=== PATIENT | male | born 1965 | race Caucasian/White ===

== ENCOUNTER 2017-09-20 09:53 | Emergency (ER) | payer MEDICAID ==
[2017-09-20 10:00] VITALS: RESP 16
[2017-09-20] MEDS ORDERED: SODIUM CHLORIDE 0.9% 1,000 ML IV ONE (10:30)
[2017-09-20] MEDS ORDERED: RX INFO: IV CONTRAST WAS GIVEN 1 EACH MISC MISCELLANE PRN (10:30)
[2017-09-20] MEDS ORDERED: ONDANSETRON 4 MG/2 ML VIAL IVP STA (10:31)
[2017-09-20 11:07] LABS: Basophils # (A) 0.1 k/uL (0-0.2); Basophils % (A) 1 %; CH 30.4; CHCM 35.4; Eosinophils # (A) 0.2 k/uL (0-0.7); Eosinophils % (A) 2 %; HCT 50.6 % (39.0-53.0); HDW 2.49; HGB 17.3 gm/dL (13.0-17.5); Luc # (Auto) 0.15; Luc % (Auto) 1; Lymphocytes # (A) 2.1 k/uL (1.0-4.8); Lymphocytes % (A) 20 %; MCH 29.4 pg (25.0-35.0); MCHC 34.2 g/dL (31.0-37.0); MCV 85.9 fL (80.0-100.0); Mean Platelet Volume 6.6; Monocytes # (A) 0.5 k/uL (0-1.0); Monocytes % (A) 5 %; Neutrophils # (A) 7.7 k/uL (1.3-7.7); Neutrophils % (A) 72 %; RBC 5.88 m/uL (4.30-5.90); RDW 12.5 % (11.5-15.5); WBC 10.7 k/uL (3.8-10.6); WBC (Perox) 9.62
--- NOTE | 2017-09-20 11:08 | ED ---
Abdominal Pain HPI - General Chief Complaint: Abdominal Pain Stated Complaint: NAUSEA X 3 DAYS URQ PAIN Time Seen by Provider: 09/20/17 10:08 Source: patient, family Mode of arrival: ambulatory Limitations: no limitations - History of Present Illness Initial Comments: 51-year-old male with past medical history of chronic right upper quadrant abdominal pain with multiple previous workups including abdominal ultrasound, HIDA scan 2, and EGD/colonoscopy with Dr. Patel presenting for evaluation of continued right upper quadrant abdominal pain. He states that it' s been on and off recently but has currently been present for the last 3 days. States is worse with eating and there is associated nausea with loose stools but denies vomiting anything up, chest pain, shortness of breath, fevers, chills. There are no alleviating factors. - Related Data Home Medications Medication Instructions Recorded Confirmed Ibuprofen [Motrin] 200 mg PO Q4-6H PRN 03/06/16 09/20/17 Lisinopril [Zestril] 10 mg PO QAM 03/06/16 09/20/17 Omeprazole [PriLOSEC] 20 mg PO QAM 03/06/16 09/20/17 Loratadine [Claritin] 10 mg PO DAILY 09/20/17 09/20/17 Oxymetazoline 0.05% Nasl [place] 2 spray EA NOSTRIL BID PRN 09/20/17 09/20/17 [Afrin 0.05% Nasal [place]] Sodium Chloride [[facility]] 1 spray EA NOSTRIL DAILY PRN 09/20/17 09/20/17 Allergies Allergy/AdvReac Type Severity Reaction Status Date / Time No Known Allergies Allergy Verified 09/20/17 10:20 Review of Systems ROS Statement: Those systems with pertinent positive or pertinent negative responses have been documented in the HPI. ROS Other: All systems not noted in ROS Statement are negative. Constitutional: Denies: fever, chills Eyes: Denies: eye pain, eye discharge ENT: Denies: ear pain, throat pain Respiratory: Denies: cough, dyspnea Cardiovascular: Denies: chest pain, palpitations Endocrine: Denies: fatigue, polydipsia, polyuria Gastrointestinal: Reports: abdominal pain, nausea, diarrhea. Denies: vomiting, constipation Genitourinary: Denies: urgency, dysuria Musculoskeletal: Denies: back pain, arthralgia, myalgia Skin: Denies: rash, lesions Neurological: Denies: headache, weakness Psychiatric: Denies: anxiety, depression Hematological/Lymphatic: Denies: easy bleeding, easy bruising Past Medical History Past Medical History: GERD/Reflux, Hypertension, Osteoarthritis (OA) History of Any Multi-Drug Resistant Organisms: None Reported Past Surgical History: Appendectomy, Orthopedic Surgery Additional Past Surgical History / Comment(s): bilateral hip replaced Past Anesthesia/Blood Transfusion Reactions: No Reported Reaction Past Psychological History: No Psychological Hx Reported Smoking Status: Current every day smoker Past Alcohol Use History: Rare Past Drug Use History: None Reported - Past Family History Father Family Medical History: Cancer Additional Family Medical History / Comment(s): PROSTATE General Exam Limitations: no limitations General appearance: alert, in no apparent distress Head exam: Present: atraumatic, normocephalic Eye exam: Present: normal appearance, PERRL, EOMI. Absent: scleral icterus, conjunctival injection, periorbital swelling ENT exam: Present: normal exam, mucous membranes moist Neck exam: Present: normal inspection. Absent: tenderness, meningismus, lymphadenopathy Respiratory exam: Present: normal lung sounds bilaterally. Absent: respiratory distress, wheezes, rales, rhonchi, stridor Cardiovascular Exam: Present: regular rate, normal rhythm, normal heart sounds. Absent: systolic murmur, diastolic murmur, rubs, gallop, clicks GI/Abdominal exam: Present: soft, tenderness. Absent: distended, guarding, rebound, rigid, normal bowel sounds, diminished bowel sounds Rectal exam: Present: deferred Extremities exam: Present: normal inspection, full ROM, normal capillary refill. Absent: tenderness, pedal edema, joint swelling, calf tenderness Back exam: Present: normal inspection Neurological exam: Present: alert, oriented X3, CN II-XII intact Psychiatric exam: Present: normal affect, normal mood Skin exam: Present: warm, dry, intact, normal color. Absent: rash Course Vital Signs 09/20/17 09/20/17 09:56 12:35 Temperature 98.6 F 98.7 F Pulse Rate 64 55 L Respiratory 16 16 Rate Blood Pressure 180/99 130/82 O2 Sat by Pulse 99 97 Oximetry Medical Decision Making - Medical Decision Making 51-year-old male with past medical history of multiple workups for right upper quadrant abdominal pain including abdominal ultrasound and HIDA scans 2 presented for evaluation of right upper quadrant pain present for the last 3 days worse with food. On physical examination he has tenderness to the abdomen or peritoneal signs of guarding, rigidity, or rebound. Remainder of his physical exam is benign. Given his previous exams have not included any further imaging will obtain a CT abdomen and pelvis at this time. We'll also obtain labs. Patient was offered pain and nausea control however refused. He was informed that should he change his mind he should inform RN or DO. Labs revealed a mild transaminitis however reviewing the patient's past medical history is a consistent with his baseline. CT abdomen and pelvis showed no acute process however there were some abnormalities noted and recommended follow -up in 6-12 months. The patient was informed of all results and through shared decision making it was determined that he would be discharged with instructions to follow-up with his primary care physician and a GI specialist. Further advised to return to this facility if his symptoms should worsen or persist. The patient acknowledged an understanding of all formation provided and agreed with this plan of care. - Lab Data Result diagrams: 09/20/17 10:50 09/20/17 10:50 Lab Results 09/20/17 09/20/17 09/20/17 Range/Units 10:50 10:50 11:30 WBC 10.7 H (3.8-10.6) k/uL RBC 5.88 (4.30-5.90) m/uL Hgb 17.3 (13.0-17.5) gm/dL Hct 50.6 (39.0-53.0) % MCV 85.9 (80.0-100.0) fL MCH 29.4 (25.0-35.0) pg MCHC 34.2 (31.0-37.0) g/dL RDW 12.5 (11.5-15.5) % Plt Count 162 (150-450) k/uL Neutrophils % 72 % Lymphocytes % 20 % Monocytes % 5 % Eosinophils % 2 % Basophils % 1 % Neutrophils # 7.7 (1.3-7.7) k/uL Lymphocytes # 2.1 (1.0-4.8) k/uL Monocytes # 0.5 (0-1.0) k/uL Eosinophils # 0.2 (0-0.7) k/uL Basophils # 0.1 (0-0.2) k/uL Sodium 142 (137-145) mmol/L Potassium 4.6 (3.5-5.1) mmol/L Chloride 109 H (98-107) mmol/L Carbon Dioxide 23 (22-30) mmol/L Anion Gap 10 mmol/L BUN 19 (9-20) mg/dL Creatinine 0.92 (0.66-1.25) mg/dL Est GFR (MDRD) Af Amer >60 (>60 ml/min/1.73 sqM) Est GFR (MDRD) Non-Af >60 (>60 ml/min/1.73 sqM) Glucose 106 H (74-99) mg/dL Calcium 10.1 (8.4-10.2) mg/dL Total Bilirubin 0.9 (0.2-1.3) mg/dL AST 80 H (17-59) U/L ALT 148 H (21-72) U/L Alkaline Phosphatase 54 (38-126) U/L Total Protein 7.9 (6.3-8.2) g/dL Albumin 4.5 (3.5-5.0) g/dL Lipase 231 (23-300) U/L Urine Color Yellow Urine Appearance Clear (Clear) Urine pH 6.0 (5.0-8.0) Ur Specific [place] 1.032 (1.001-1.035) Urine Protein Negative (Negative) Urine Glucose (UA) Negative (Negative) Urine Ketones Negative (Negative) Urine Blood Negative (Negative) Urine Nitrite Negative (Negative) Urine Bilirubin Negative (Negative) Urine Urobilinogen <2.0 (<2.0) mg/dL Ur Leukocyte Esterase Negative (Negative) Disposition Clinical Impression: Abdominal pain Disposition: HOME SELF-CARE Condition: Stable Instructions: Abdominal Pain (ED) Referrals: Felix Powell Jr, [Primary Care Provider] - 1-2 days Time of Disposition: 12:33
[2017-09-20 11:18] LABS: ALT 148 U/L (21-72); AST 80 U/L (17-59); Alkaline Phosphatase 54 U/L (38-126); Anion Gap 10 mmol/L; Blood Urea Nitrogen 19 mg/dL (9-20); Calcium 10.1 mg/dL (8.4-10.2); Carbon Dioxide 23 mmol/L (22-30); Chloride 109 mmol/L (98-107); Glucose 106 mg/dL (74-99); Non-African American GFR(MDRD) >60 (>60 ml/min/1.73 sqM); Potassium 4.6 mmol/L (3.5-5.1); Sodium 142 mmol/L (137-145); Total Bilirubin 0.9 mg/dL (0.2-1.3); Total Protein 7.9 g/dL (6.3-8.2)
--- NOTE | 2017-09-20 11:44 | CT ---
EXAMINATION TYPE: CT abdomen pelvis w con DATE OF EXAM: 09/20/2017 COMPARISON: NONE HISTORY: 51-year-old male RUQ pain TECHNIQUE: Contiguous axial scanning of the abdomen and pelvis following administration of 100 ml Omn ipaque 300 IV contrast. Delayed images through the kidneys and coronal/sagittal reconstructions perf ormed. CT DLP: 1664 mGycm Automated exposure control for dose reduction was used. FINDINGS: The heart is normal size without pericardial effusion. Lung bases clear without pleural effusion. Liver enlarged measuring 20.1 cm craniocaudal with diffuse low-attenuation. There is geographic area of increased density along the sandra hepatis and gallbladder fossa. Otherwise, no focal liver lesion seen. Portal venous system is patent. No biliary ductal dilatation. There is a diverticulum of the third po rtion of the duodenum projecting superiorly and anteriorly incidentally noted. Adrenal glands, kidneys, and pancreas appear within normal limits. The hilar splenule and spleen danny ures at the upper limits of normal at 13.1 cm. This is to be some mild fold thickening of proximal jejunal loops in the left upper quadrant, referre d to coronal image 30 and axial images 30 through 34. No mesenteric or retroperitoneal lymphadenopathy. Some surgical material at the right lower quadrant. No significant stool burden. No pericolonic inflammatory change. Limited visualization of the pelvis due to extensive metal hardware artifact relating to the patient' s hip replacements. Bones: Degenerative disc disease L5-S1. No osseous destructive process. IMPRESSION: 1. 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 CORRELATE WITH LFT's, LIPID PROFILE, AND PATIENT RI SK FACTORS. 2. AREA OF ENHANCEMENT/INCREASED DENSITY ALONG THE SANDRA HEPATIS HAS A GEOGRAPHIC CONFIGURATION SUGGE STIVE OF FATTY SPARING RATHER THAN A MASS. A SIX-MONTH FOLLOW-UP CT OR MRI CAN BE CONSIDERED A PRE CAUTIONARY MEASURE. 3. MILD FOLD THICKENING OF PROXIMAL JEJUNAL LOOPS COULD REPRESENT A REGIONAL ENTERITIS.
[2017-09-20 11:45] LABS: Appearance,Urine Clear (Clear); Bilirubin,Urine Negative (Negative); Glucose,Urine (UA) Negative (Negative); Ketones,Urine Negative (Negative); Leukocyte Esterase,Urine Negative (Negative); Nitrite,Urine Negative (Negative); Protein,Urine Negative (Negative); Specific Gravity,Urine 1.032 (1.001-1.035); UA Billing (MACRO vs. MICRO) CHEM; Urobilinogen,Urine <2.0 mg/dL (<2.0)
[2017-09-20 12:36] VITALS: BP 130/82; PULSE 55; TEMP 98.7
== END 2017-09-20 12:54 | disposition home or self-care (01) ==
LOC: EC 09:53
DX: R10.11 Right upper quadrant pain (principal); R11.0 Nausea; G89.29 Other chronic pain; R19.7 Diarrhea, unspecified; K21.9 Gastro-esophageal reflux disease without esophagitis; I10 Essential (primary) hypertension; F17.200 Nicotine dependence, unspecified, uncomplicated; Z90.49 Acquired absence of other specified parts of digestive tract; Z79.899 Other long term (current) drug therapy; Z53.20 Procedure and treatment not carried out because of patient's decision for unspecified reasons
CPT/HCPCS: 36415; 80053; 83690; 85025; 81003; 74177; 99284; 96360; Q9967

== ENCOUNTER 2017-09-24 10:01 | Emergency (ER) | payer MEDICAID ==
[2017-09-24 10:16] VITALS: RESP 18
[2017-09-24] MEDS ORDERED: ACETAMINOPHEN TAB 500 MG TAB PO STA (10:34)
[2017-09-24] MEDS ORDERED: IBUPROFEN 800 MG TAB PO STA (10:34)
--- NOTE | 2017-09-24 10:38 | ED ---
URI HPI - General Chief Complaint: Upper Respiratory Infection Stated Complaint: flu like symptoms, chest congestion, pain Time Seen by Provider: 09/24/17 10:22 Source: patient, RN notes reviewed, old records reviewed Mode of arrival: ambulatory Limitations: no limitations - History of Present Illness Initial Comments: This is a 51-year-old male presents to the emergency department today chief complaint of fever, and bodyaches for the past 2 days. Patient reports he's had a dry cough. He is a smoker, but he isn't on quitting for the past week. He is on Chantix. Patient reports that he has not had any Motrin or Tylenol today. He feels nauseated but is acidic abdominal pain. Patient was evaluated days ago for abdominal pain. Patient reports that he follow-up with his primary care provider the following day. He reports a history of hyperactive gallbladder. He states that he has no abdominal pain at this time. Patient reports severe chills. Denies any nausea, vomiting, chest, pain, shortness of breath, dysuria, back pain. Patient states that he did get the flu shot. - Related Data Home Medications Medication Instructions Recorded Confirmed Ibuprofen [Motrin] 400 mg PO Q4-6H PRN 03/06/16 09/24/17 Lisinopril [Zestril] 10 mg PO QAM 03/06/16 09/24/17 Omeprazole [PriLOSEC] 20 mg PO QAM 03/06/16 09/24/17 Pseudoephedrine [Sudafed] 30 mg PO Q4H PRN 09/24/17 09/24/17 guaiFENesin 400 mg PO Q12H PRN 09/24/17 09/24/17 Previous Rx's Medication Instructions Recorded Promethaz-Cod 6.25-10 mg/5 ml 5 ml PO Q4HR PRN #120 ml 09/24/17 [Phenergan with Codeine] Allergies Allergy/AdvReac Type Severity Reaction Status Date / Time No Known Allergies Allergy Verified 09/24/17 10:36 Review of Systems ROS Statement: Those systems with pertinent positive or pertinent negative responses have been documented in the HPI. ROS Other: All systems not noted in ROS Statement are negative. Past Medical History Past Medical History: GERD/Reflux, Hypertension, Osteoarthritis (OA) History of Any Multi-Drug Resistant Organisms: None Reported Past Surgical History: Appendectomy, Orthopedic Surgery Additional Past Surgical History / Comment(s): bilateral hip replaced Past Anesthesia/Blood Transfusion Reactions: No Reported Reaction Past Psychological History: No Psychological Hx Reported Smoking Status: Current every day smoker Past Alcohol Use History: Rare Past Drug Use History: None Reported - Past Family History Father Family Medical History: Cancer Additional Family Medical History / Comment(s): PROSTATE General Exam - General Exam Comments Initial Comments: This is a 51 year old male, with rigors. No acute distress. Limitations: no limitations General appearance: alert, in no apparent distress Head exam: Present: atraumatic, normocephalic, normal inspection Eye exam: Present: normal appearance, PERRL, EOMI. Absent: scleral icterus, conjunctival injection, periorbital swelling ENT exam: Present: normal exam, mucous membranes moist Neck exam: Present: normal inspection. Absent: tenderness, meningismus, lymphadenopathy Respiratory exam: Present: normal lung sounds bilaterally. Absent: respiratory distress, wheezes, rales, rhonchi, stridor Cardiovascular Exam: Present: regular rate, normal rhythm, normal heart sounds. Absent: systolic murmur, diastolic murmur, rubs, gallop, clicks GI/Abdominal exam: Present: soft, normal bowel sounds. Absent: distended, tenderness, guarding, rebound, rigid Extremities exam: Present: normal inspection, full ROM, normal capillary refill. Absent: tenderness, pedal edema, joint swelling, calf tenderness Back exam: Present: normal inspection Neurological exam: Present: alert, oriented X3, CN II-XII intact Psychiatric exam: Present: normal affect, normal mood Skin exam: Present: warm, dry, intact, normal color. Absent: rash Course Vital Signs 09/24/17 09/24/17 09/24/17 10:12 11:00 11:47 Temperature 101.8 F H 99.4 F Pulse Rate 95 82 Respiratory 18 18 18 Rate Blood Pressure 134/82 114/63 O2 Sat by Pulse 98 96 Oximetry Medical Decision Making - Medical Decision Making This is a 51 year old male with fever and chills for 3 days, and dry cough. Patient arrives with fever 102.3. Given motrin and tylenol. Patient has rigors. Lungs are clear, no wheezing or diminished lung sounds. Patient Influenza A positve. CXR is negative. Discussed that patient is out of timeframe for tamiflu benefit. Patient will be written for cough syrup. Patient reports he would like to go home. Patient offered fluids and lab work but states would prefer to go home. He has no vomiting or nausea at thsi time. Discussed rest, and return parameters. Written off of work. - Lab Data Lab Results 09/24/17 09/24/17 Range/Units 10:55 10:55 Influenza Type A RNA Detected H (Not Detectd) Influenza Type B (PCR) Not Detected (Not Detectd) Group A Strep Rapid Negative (Negative) - Radiology Data Radiology results: report reviewed CXR was reviewed and normal. Disposition Clinical Impression: Influenza A Disposition: HOME SELF-CARE Condition: Good Instructions: Influenza (ED), Upper Respiratory Infection (ED) Additional Instructions: Rest rest, increase fluid intake. Return to the emergency department if any alarming signs or symptoms occur. Take the cough syrup as prescribed. Alternate Motrin Tylenol every 4 hours. Prescriptions: Promethaz-Cod 6.25-10 mg/5 ml [Phenergan with Codeine] 5 ml PO Q4HR PRN #120 ml PRN Reason: Cough Referrals: Felix Powell Jr, [Primary Care Provider] - 1-2 days Time of Disposition: 11:39
[2017-09-24] MEDS ORDERED: PROMETHAZ-COD 6.25-10 MG/5 ML 5 ML CUP PO STA (11:10)
--- NOTE | 2017-09-24 11:19 | XR ---
EXAMINATION TYPE: XR chest 2V DATE OF EXAM: 09/24/2017 COMPARISON: NONE HISTORY: Cough TECHNIQUE: Frontal and lateral views of the chest are obtained. FINDINGS: Heart and mediastinum are normal. Lungs are clear of consolidation. There is some minimal coarsening of interstitial markings at the lung bases. There is no pleural effusion. Bony thorax is i ntact. IMPRESSION: Minimal pulmonary fibrotic changes. Normal heart. No acute lung disease.
[2017-09-24 11:49] VITALS: BP 114/63; PULSE 82; TEMP 99.4
== END 2017-09-24 12:15 | disposition home or self-care (01) ==
LOC: EC 10:01
DX: J09.X2 Influenza due to identified novel influenza A virus with other respiratory manifestations (principal); K21.9 Gastro-esophageal reflux disease without esophagitis; I10 Essential (primary) hypertension; F17.200 Nicotine dependence, unspecified, uncomplicated; Z79.899 Other long term (current) drug therapy
CPT/HCPCS: 71046; 87081; 87430; 87502; 99283

== ENCOUNTER → 2017-12-25 | Outpatient (CLI) | payer MEDICAID | END | disposition home or self-care (01) | LOC: RADMRIMAIN 20:00 | PROVIDERS: ATTEND Family Medicine | DX: Z53.9 Procedure and treatment not carried out, unspecified reason (principal) ==

== ENCOUNTER → 2018-01-07 | Outpatient (CLI) | payer MEDICAID ==
--- NOTE | 2018-01-07 15:04 | NM ---
EXAMINATION TYPE: NM hepatobiliary w CCK DATE OF EXAM: 01/07/2018 COMPARISON: CT abdomen pelvis 09/20/2017 HISTORY: Chronic cholecystitis TECHNIQUE: After the intravenous administration of 5.11 mCi Tc 99m Mebrofenin hepatobiliary scintigra phy is performed. Immediate images post injection. FINDINGS: There is satisfactory initial accumulation of tracer by the liver. The gallbladder is visualized wit hin 4 minutes. The small bowel activity is noted within 8 minutes. At one hour CCK was administered , patient was injected with 2 mcg of Kinevac, and gallbladder ejection fraction is calculated at 89 % . Therefore there is no scintigraphic evidence of cystic or common bile duct obstruction to suggest a cute cholecystitis. IMPRESSION: Gallbladder ejection fraction is 89%
== END | disposition home or self-care (01) ==
LOC: RADNMMAIN 12:46
PROVIDERS: ATTEND Surgery
DX: K81.1 Chronic cholecystitis (principal)
CPT/HCPCS: 78227; A9537; J2805

== ENCOUNTER 2018-01-17 08:03 | Day surgery (SDC) | payer MEDICAID ==
[2018-01-14 15:12] VITALS: BMI 28.8
[~2018-01-17 08:03] MED LIST: DEXAMETHASONE SOD PHOSPHATE 10 MG/ML 1 ML VIAL IV ONE; HEPARIN SODIUM,PORCINE 5,000 UNIT/ML 1 ML VIAL SQ ONE; LACTATED RINGERS 1,000 ML IV SCH; LIDOCAINE 1% 20 ML VIAL (10MG/ML) FOR IV START INTRADERMA PRN; ONDANSETRON ODT 4 MG TAB PO ONE; SCOPOLAMINE 1.5MG/72HR PATCH TRANSDERM ONE; ceFAZolin IN SWFI 2 GM/20 ML SYRINGE IVP ONE
[2018-01-17] MEDS ORDERED: LIDOCAINE 1% 20 ML VIAL (10MG/ML) FOR IV START INTRADERMA ONE ×2 (08:35→08:48)
--- NOTE | 2018-01-17 08:48 | P.GSHP ---
History of Present Illness H&P Date: 01/17/18 Chief Complaint: Chronic cholecystitis This a 52-year-old male with Dr. Powell. Patient's had complaints of epigastric abdominal pain and nausea. Patient recent HIDA scan which showed abnormal ejection fraction. Patient presents today for laparoscopically significant for chronic cholecystitis. Past Medical History Past Medical History: GERD/Reflux, Hypertension, Osteoarthritis (OA) Additional Past Medical History / Comment(s): Hiatal hernia, possible fatty liver. History of Any Multi-Drug Resistant Organisms: None Reported Past Surgical History: Appendectomy, Orthopedic Surgery Additional Past Surgical History / Comment(s): bilateral hip replaced, Past Anesthesia/Blood Transfusion Reactions: No Reported Reaction Smoking Status: Current every day smoker - Past Family History Father Family Medical History: Cancer Additional Family Medical History / Comment(s): PROSTATE Medications and Allergies Home Medications Medication Instructions Recorded Confirmed Type Lisinopril [Zestril] 10 mg PO QAM 03/06/16 01/17/18 History Omeprazole [PriLOSEC] 20 mg PO QAM 03/06/16 01/17/18 History Pseudoephedrine [Sudafed] 30 mg PO Q4H PRN 09/24/17 01/17/18 History Allergies Allergy/AdvReac Type Severity Reaction Status Date / Time No Known Allergies Allergy Verified 01/14/18 14:54 Surgical - Exam Vital Signs Temp Pulse Resp BP Pulse Ox 97.7 F 64 16 133/86 100 01/17/18 08:20 01/17/18 08:20 01/17/18 08:20 01/17/18 08:20 01/17/18 08:20 - General well developed, no distress - Eyes PERRL - ENT normal pinna - Neck no masses - Respiratory normal expansion - Cardiovascular Rhythm: regular - Abdomen Abdomen: soft, non tender Assessment and Plan Assessment: Chronic cholecystitis. We'll perform laparoscopic cholecystectomy.
[2018-01-17] MEDS ORDERED: VECURONIUM 10 MG VIAL IV ONE (09:13)
[2018-01-17] MEDS ORDERED: GLYCOPYRROLATE 0.2 MG/ML 2 ML VIAL ONE (09:13)
[2018-01-17] MEDS ORDERED: MIDAZOLAM 2 MG/2 ML VIAL ONE (09:13)
[2018-01-17] MEDS ORDERED: PROPOFOL 10 MG/ML 20 ML VIAL IV ONE (09:13)
[2018-01-17] MEDS ORDERED: MORPHINE SULFATE 10 MG/ML SYRINGE ONE (09:13)
[2018-01-17] MEDS ORDERED: KETOROLAC 30 MG/ML 1 ML VIAL ONE (09:13)
[2018-01-17] MEDS ORDERED: SUCCINYLCHOLINE CHLORIDE 100 MG/5 ML SYR IV ONE (09:13)
[2018-01-17] MEDS ORDERED: NEOSTIGMINE 1 MG/ML 10 ML VIAL ONE (09:13)
[2018-01-17] MEDS ORDERED: BUPIVACAINE (PF) 0.25% 30 ML VIAL SQ ONE ×2 (09:13→09:35)
[2018-01-17] MEDS ORDERED: fentaNYL (PF) 50 MCG/ML 2 ML AMP ONE (09:13)
[2018-01-17] MEDS ORDERED: LIDOCAINE 1% INJ 10MG/ML (20 ML MDV) ONE (09:13)
[2018-01-17 10:25] VITALS: TEMP 96.9
[2018-01-17 10:32] VITALS: RESP 16
[2018-01-17] MEDS: MORPHINE SULFATE 4 MG/0.8 ML SYRINGE (INJ) IV PRN ×2 (10:32→10:37)
[2018-01-17] MEDS ORDERED: diphenhydrAMINE 50 MG/ML 1 ML VIAL IVP ONE (10:34)
[2018-01-17] MEDS: MEPERIDINE 50 MG/ML SYRINGE IVP ONE ×2 (10:44→10:52)
[2018-01-17 11:27] VITALS: PULSE 57
[2018-01-17] MEDS ORDERED: HYDROcodone/APAP 7.5-325MG 1 EACH TAB PO ONE (12:04)
[2018-01-17 12:07] VITALS: BP 109/69
--- NOTE | 2018-01-23 08:27 | P.OP ---
Date of Procedure: 01/17/18 Preoperative Diagnosis: Cholecystitis Postoperative Diagnosis: Cholecystitis Adhesions Procedure(s) Performed: Laparoscopic lysis of adhesions Laparoscopic cholecystectomy Liver biopsy Anesthesia: ZOYA Surgeon: Win Patel Estimated Blood Loss (ml): 5 Pathology: other (Gallbladder, liver) Condition: stable Description of Procedure: The patient was placed on the operating table. The patient received a general endotracheal tube anesthesia. The patients abdomen was prepped and draped in the usual sterile fashion. Through an infraumbilical stab incision, the fascia of the anterior abdominal wall was grasped with a pair of Kochers and then the Veress needle was placed in the peritoneal cavity. Position of the Veress needle was confirmed with positive drop test. The abdomen was then insufflated. After adequate insufflation, the 10 mm trocar was placed in the peritoneal cavity. Following this the laparoscope was placed in the peritoneal cavity. The patient was placed in the head-up, right side up position and then a 5 mm trocar was placed in the right lateral and right subcostal position under direct visualization. A 8 mm trocar was placed in the epigastric position. There were adhesions noted to the liver. These were lysed using sharp dissection. There were extensive adhesions over the right lobe of the liver. The gallbladder was grasped in the fundus and infundibulum. The gallbladder appeared to be grossly inflamed. Traction on the gallbladder was placed in the lateral and the cephalad positions. The triangle of Calot was visualized.. The cystic duct was bluntly dissected until the union of the cystic duct and common bile duct was seen. The cystic duct was then divided and sealed with the Harmonic scissors. A PDS Endoloop was then placed throughout the cystic duct stump. The cystic artery divided and sealed with the Harmonic scissors. The gallbladder was then removed from the liver bed using Harmonic scissors. The gallbladder was then extracted through the epigastric port site. Due to the patient's recent elevated liver function tests a liver biopsy performed using the toothed forcep. A portion of the right lobe was biopsied to soctt. Electrocautery was used for hemostasis. Operative field was checked for any bleeding spots and Harmonic scissors was used to coagulate the liver bed. The abdomen was irrigated. The trocars were removed. The skin was closed using interrupted 3-0 Vicryl suture. Dermabond dressing were applied. The patient tolerated the procedure well.
== END 2018-01-17 12:29 | disposition home or self-care (01) ==
LOC: OR 08:03
PROVIDERS: ATTEND Surgery
DX: K81.1 Chronic cholecystitis (principal); K74.60 Unspecified cirrhosis of liver; K75.81 Nonalcoholic steatohepatitis (NASH); K66.0 Peritoneal adhesions (postprocedural) (postinfection); K21.9 Gastro-esophageal reflux disease without esophagitis; I10 Essential (primary) hypertension; M19.90 Unspecified osteoarthritis, unspecified site; K44.9 Diaphragmatic hernia without obstruction or gangrene; Z96.643 Presence of artificial hip joint, bilateral; Z79.899 Other long term (current) drug therapy; F17.210 Nicotine dependence, cigarettes, uncomplicated
CPT/HCPCS: 88304; 88313; 88307; 47562; 47379; J2250; J1200; J1100; J2710; J2175; J2270 ×2; J2001; J3010; J1885; J0330; J2704; J0690

== ENCOUNTER → 2018-05-08 | Outpatient (CLI) | payer MEDICAID ==
[2018-05-08 12:55] LABS: Basophils # (A) 0.1 k/uL (0-0.2); Basophils % (A) 1 %; Eosinophils # (A) 0.1 k/uL (0-0.7); Eosinophils % (A) 1 %; HCT 52.5 % (39.0-53.0); Lymphocytes % (A) 19 %; MCH 28.4 pg (25.0-35.0); MCHC 32.4 g/dL (31.0-37.0); MCV 87.7 fL (80.0-100.0); Mean Platelet Volume 6.1; Monocytes # (A) 0.7 k/uL (0-1.0); Monocytes % (A) 7 %; Neutrophils # (A) 7.9 k/uL (1.3-7.7); Neutrophils % (A) 72 %; Platelet Count 211 k/uL (150-450); RBC 5.98 m/uL (4.30-5.90)
[2018-05-08 13:16] LABS: ALT 51 U/L (21-72); AST 36 U/L (17-59); Albumin 5.2 g/dL (3.5-5.0); Alkaline Phosphatase 62 U/L (38-126); Amylase 70 U/L (30-110); Anion Gap 10 mmol/L; Bilirubin, Delta 0.3 mg/dL (0.0-0.2); Bilirubin,Unconjugated 0.8 mg/dL (0.0-1.1); Blood Urea Nitrogen 21 mg/dL (9-20); Calcium 10.2 mg/dL (8.4-10.2); Carbon Dioxide 29 mmol/L (22-30); Chloride 105 mmol/L (98-107); Glucose 101 mg/dL (74-99); Lipase 147 U/L (23-300); Potassium 5.1 mmol/L (3.5-5.1); Sodium 144 mmol/L (137-145); Total Bilirubin 1.1 mg/dL (0.2-1.3); Total Protein 8.5 g/dL (6.3-8.2)
[2018-05-08 20:27] LABS: Iron Saturation 17.98 (15.00-50.00)
== END | disposition home or self-care (01) ==
LOC: LABWHC1 12:30
PROVIDERS: ATTEND Family Medicine
DX: I10 Essential (primary) hypertension (principal); K75.81 Nonalcoholic steatohepatitis (NASH)
CPT/HCPCS: 36415; 80053; 82150; 82248; 82728; 83540; 83550; 83690; 85025

== ENCOUNTER → 2018-06-12 | Outpatient (CLI) | payer MEDICAID ==
[2018-06-12 08:50] LABS: INR 1.1 (<1.2); Prothrombin Time 10.8 sec (9.0-12.0)
--- NOTE | 2018-06-12 15:51 | US ---
EXAMINATION TYPE: US liver DATE OF EXAM: 06/12/2018 COMPARISON: CT 09/20/2017, US 02/16/2016 CLINICAL HISTORY: K74.60 Cirrhosis of the liver. RUQ pain, GB removed EXAM MEASUREMENTS: Liver Length: 18.2 cm . There is moderate fatty infiltration. Gallbladder Wall: Surgically absent CBD: 0.5 cm Right Kidney: 10.9 x 5.2 x 5.0 cm Pancreas: Tail obscured by overlying bowel gas Liver: Increased attenuation, decreased visualization of vessels suggestive of fatty infiltrate, Het erogeneous texture, difficult to visualize area of vasiliy hepatus. Gallbladder: Surgically absent Evidence for sonographic Najera's sign: No CBD: wnl Right Kidney: wnl IMPRESSION: 1. Hepatomegaly with moderate fatty infiltration liver.
[2018-06-12 17:55] LABS: Alpha Fetoprotein, Tumor Mkr <2.5 ng/mL (0.0-7.9)
== END | disposition home or self-care (01) ==
LOC: RADUSWWP 07:28
PROVIDERS: ATTEND Internal Medicine
DX: K76.0 Fatty (change of) liver, not elsewhere classified (principal); K74.60 Unspecified cirrhosis of liver; K58.0 Irritable bowel syndrome with diarrhea
CPT/HCPCS: 36415; 76705; 82105; 82784; 83516; 84443; 85610

== ENCOUNTER 2018-09-12 06:57 | Day surgery (SDC) | payer MEDICAID ==
[2018-09-10 16:15] VITALS: BMI 30.3
[~2018-09-12 06:57] MED LIST changes: -DEXAMETHASONE SOD PHOSPHATE 10 MG/ML 1 ML VIAL IV ONE; -HEPARIN SODIUM,PORCINE 5,000 UNIT/ML 1 ML VIAL SQ ONE; -LIDOCAINE 1% 20 ML VIAL (10MG/ML) FOR IV START INTRADERMA PRN; -ONDANSETRON ODT 4 MG TAB PO ONE; -SCOPOLAMINE 1.5MG/72HR PATCH TRANSDERM ONE; -ceFAZolin IN SWFI 2 GM/20 ML SYRINGE IVP ONE
[2018-09-12 07:17] VITALS: TEMP 98.5
[2018-09-12] MEDS ORDERED: LIDOCAINE 1% INJ 10MG/ML (20 ML MDV) ONE (07:39)
[2018-09-12] MEDS ORDERED: PROPOFOL 10 MG/ML 20 ML VIAL IV ONE (07:39)
[2018-09-12 08:51] VITALS: PULSE 62; RESP 18
--- NOTE | 2018-09-12 08:51 | P.PCN ---
Date of Procedure: 09/12/18 Description of Procedure: Brief history: Patient is a pleasant 52-year-old male with a medical history significant for hypertension and decompensated Briones cirrhosis as well as IBSdiarrhea prominent who presents for outpatient EGD and colonoscopy. The patient reports last colonoscopy was approximately 2 years ago and at that time was normal. The patient has had development of abdominal pain described as occurring in the right upper and lower quadrant of the abdomen. The abdominal pain is improved with Bentyl therapy. In addition the patient has loose bowel movements at baseline, predominantly in the mornings, described as nonbloody and with associated urgency. Procedure performed: Esophagogastroduodenoscopy with biopsy Colonoscopy with cold forcep polypectomy Estimated blood loss: Minimal. Preoperative diagnosis: Variceal screening, abdominal pain, change in bowel habits Anesthesia: MAC Procedure: After informed consent was obtained from the patient was brought into the endoscopy unit and IV sedation was administered by anesthesia under continuous monitoring. Initially upper endoscopy was done. The Olympus GF 190 video endoscope was inserted inserted into the mouth and esophagus intubated without any difficulty and was gradually advanced into the stomach and duodenum and carefully examined. The bulb and second part of the duodenum appeared normal with biopsies taken to rule out celiac sprue. The scope was then withdrawn into the stomach adequately insufflated with air and upon careful examination the antrum and body, cardia and fundus appeared grossly normal with some mild scattered erythema in the antrum and body suggestive of gastritis which was biopsied. The scope was then withdrawn into the esophagus. The GE junction was located at 40 cm to the incisors. It appeared regular with no erythema erosions or ulcerations. . No esophageal varices were noted. Patient tolerated the procedure well. At this time the patient continued to remain sedation. Initial digital rectal examination was normal. Olympus CF 190 video colonoscope was then inserted into the rectum and gradually advanced to the cecum without any difficulty. Careful examination was performed as the scope was gradually being withdrawn. The prep was excellent. The cecum, ascending colon, transverse colon, descending colon, sigmoid colon and rectum appeared normal. Diminutive sessile 2 mm polyp noted in the transverse colon removed with cold forceps polypectomy. Diminutive sessile 4 mm polyp noted in the descending colon and removed with cold forcep polypectomy. Diminutive sessile 3 mm polyp noted in the rectum and removed with cold forcep polypectomy. Random biopsies were taken in the right colon, transverse colon and left colon. Retroflexion was performed in the rectum and no lesions were noted, mild internal hemorrhoids were seen. Patient tolerated the procedure well. Impression: 1. Duodenal biopsies, gastritis biopsied. No varices noted. 2. Transverse colon polypectomy. Descending colon polypectomy. Rectal polypectomy. Mild internal hemorrhoids. Random colon biopsies to rule out microscopic colitis. Recommendations: Findings of this examination were discussed with the patient as well as his . Okay to resume low-sodium diet. Await pathology from biopsies. Recommend repeat upper endoscopy in 2 years for variceal screening. Recommendations for surveillance colonoscopy in 5 years pending pathology from polypectomies.
[2018-09-12 09:05] VITALS: BP 146/82
== END 2018-09-12 09:06 | disposition home or self-care (01) ==
LOC: ORWHC2ENDO 06:57
PROVIDERS: ATTEND Internal Medicine
DX: K29.50 Unspecified chronic gastritis without bleeding (principal); D12.4 Benign neoplasm of descending colon; D12.3 Benign neoplasm of transverse colon; K58.0 Irritable bowel syndrome with diarrhea; K62.1 Rectal polyp; K64.8 Other hemorrhoids; I10 Essential (primary) hypertension; Z79.899 Other long term (current) drug therapy
CPT/HCPCS: 88305; 45380; 43239; J2001; J2704

== ENCOUNTER → 2019-06-19 | Outpatient (CLI) | payer MEDICAID ==
[2019-06-19 09:03] LABS: Anisocytosis Slight; Basophils # (A) 0.2 k/uL (0-0.2); Basophils % (A) 2 %; Eosinophils # (A) 0.3 k/uL (0-0.7); Eosinophils % (A) 3 %; HCT 50.7 % (39.0-53.0); HGB 17.1 gm/dL (13.0-17.5); Lymphocytes # (A) 2.4 k/uL (1.0-4.8); Lymphocytes % (A) 22 %; MCH 29.8 pg (25.0-35.0); MCHC 33.7 g/dL (31.0-37.0); MCV 88.4 fL (80.0-100.0); Mean Platelet Volume 7.8; Monocytes # (A) 0.7 k/uL (0-1.0); Monocytes % (A) 6 %; Neutrophils # (A) 6.9 k/uL (1.3-7.7); Neutrophils % (A) 64 %; Platelet Count 174 k/uL (150-450); RBC 5.73 m/uL (4.30-5.90); RDW 16.8 % (11.5-15.5); WBC 10.8 k/uL (3.8-10.6)
[2019-06-19 17:19] LABS: African American GFR (CKD) 97.8 (60.0-200.0); Albumin 4.8 g/dL (3.80-4.90); Albumin/Globulin Ratio 2.09 (1.60-3.17); Anion Gap 8.4 mmol/L (4.00-12.00); Bilirubin, Conjugated 0.2 mg/dL (0.20-0.40); Bilirubin,Unconjugated 0.4 mg/dL; Calcium 9.3 mg/dL (8.7-10.3); Carbon Dioxide 26.6 mmol/L (21.6-31.8); Globulin 2.3 g/dL (1.6-3.3); Magnesium 2.1 mg/dL (1.5-2.4); Phosphorus 3.4 mg/dL (2.4-5.1); Total Bilirubin 0.6 mg/dL (0.3-1.2); Total Protein 7.1 g/dL (6.2-8.2)
== END | disposition home or self-care (01) ==
LOC: LABWHC1 08:19
PROVIDERS: ATTEND Family Medicine
DX: I10 Essential (primary) hypertension (principal); K76.0 Fatty (change of) liver, not elsewhere classified; R11.2 Nausea with vomiting, unspecified; R10.11 Right upper quadrant pain
CPT/HCPCS: 36415; 80048; 80076; 83735; 84100; 85025

== ENCOUNTER → 2019-06-30 | Outpatient (CLI) | payer MEDICAID ==
--- NOTE | 2019-06-30 12:03 | CT ---
EXAMINATION TYPE: CT abdomen pelvis wo/w con DATE OF EXAM: 06/30/2019 COMPARISON: CT abdomen and pelvis September 20, 2017 HISTORY: Right upper quadrant pain, stomach pains CT DLP: 2789.7 mGycm, Automated Exposure Control for Dose Reduction was Utilized. CONTRAST: CT scan of the abdomen and pelvis is performed with oral and without and with IV Contrast, patient in jected with 100 mL of Isovue 300. FINDINGS: LUNG BASES: No significant abnormality is appreciated. LIVER/GB: Liver is diffusely low dense consistent with fatty infiltration on noncontrast images. Gall bladder is surgically absent. PANCREAS: No significant abnormality is seen. SPLEEN: No significant abnormality is seen. ADRENALS: No significant abnormality is seen. KIDNEYS: No significant abnormality is seen. BOWEL: No suspicious small or large bowel dilatation. Appendix surgically absent. Oral contrast nishi ches the level of the splenic flexure. Evaluation of distal bowel is suboptimal. Mild wall thickening involving the left and proximal one half sigmoid colon is present. PROSTATE/SEMINAL VESICLES: No gross abnormality seen. LYMPH NODES: No greater than 1cm abdominal or pelvic lymph nodes are appreciated. OSSEOUS STRUCTURES: Metallic cover from bilateral hip arthroplasty causes streak artifact limiting ev aluation of pelvic structures. Moderate to severe disc space narrowing L5-S1 level. OTHER: No significant additional abnormality is seen. IMPRESSION: Possible mild distal colitis. Correlate clinically. No bowel obstruction. No acute findin gs otherwise are evident.
== END | disposition home or self-care (01) ==
LOC: RADCTMAIN 08:53
PROVIDERS: ATTEND Internal Medicine
DX: R10.9 Unspecified abdominal pain (principal)
CPT/HCPCS: 74178; Q9967 ×2

== ENCOUNTER → 2020-04-07 | Outpatient (CLI) | payer MEDICAID ==
[2020-04-07 11:10] LABS: Basophils # (A) 0.1 k/uL (0-0.2); Basophils % (A) 1 %; Eosinophils # (A) 0.2 k/uL (0-0.7); Eosinophils % (A) 3 %; HCT 50.4 % (39.0-53.0); HGB 16.8 gm/dL (13.0-17.5); Lymphocytes % (A) 22 %; MCH 30.1 pg (25.0-35.0); MCHC 33.4 g/dL (31.0-37.0); MCV 90.2 fL (80.0-100.0); Mean Platelet Volume 6.8; Monocytes # (A) 0.7 k/uL (0-1.0); Monocytes % (A) 8 %; Neutrophils # (A) 6.1 k/uL (1.3-7.7); Neutrophils % (A) 66 %; Platelet Count 171 k/uL (150-450); RBC 5.58 m/uL (4.30-5.90); RDW 12.4 % (11.5-15.5); WBC 9.2 k/uL (3.8-10.6)
[2020-04-07 19:52] LABS: African American GFR (CKD) 70.7 (60.0-200.0); Albumin 4.8 g/dL (3.80-4.90); Albumin/Globulin Ratio 1.85 (1.60-3.17); Anion Gap 8.1 mmol/L (4.00-12.00); BUN/Creat Ratio 16.15 Ratio (12.00-20.00); Bilirubin, Conjugated 0.5 mg/dL (0.20-0.40); Bilirubin,Unconjugated 0.8 mg/dL; Calcium 9.7 mg/dL (8.7-10.3); Carbon Dioxide 26.9 mmol/L (21.6-31.8); Globulin 2.6 g/dL (1.6-3.3); Potassium 5.4 mmol/L (3.5-5.5); Total Bilirubin 1.3 mg/dL (0.2-1.2); Total Protein 7.4 g/dL (6.2-8.2)
[2020-04-07 21:25] LABS: Gliadin AB IgA, Deaminated NEGATIVE (NEGATIVE); Gliadin AB IgA, Unit 2.3 U/mL; Gliadin AB IgG, Deaminated NEGATIVE (NEGATIVE)
== END | disposition home or self-care (01) ==
LOC: LABWHC1 09:27
PROVIDERS: ATTEND Nurse Practitioner Family
DX: I10 Essential (primary) hypertension (principal)
CPT/HCPCS: 36415; 80053; 82103; 82150; 82248; 83516; 83690; 85025

== ENCOUNTER → 2020-04-15 | Outpatient (CLI) | payer MEDICAID ==
--- NOTE | 2020-04-15 09:35 | CT ---
EXAMINATION TYPE: CT abdomen wo/w con DATE OF EXAM: 04/15/2020 COMPARISON: CT abdomen and pelvis June 30, [address] July 21, 2017 HISTORY: RUQ pain with N/V/D Post Karuna x's [address] DLP: 1918 mGycm, Automated Exposure Control for Dose Reduction was Utilized. CONTRAST: CT scan of the abdomen is performed with oral and without and with IV Contrast, patient injected with 100 mL of Isovue 300. FINDINGS: LUNG BASES: No significant abnormality is appreciated. LIVER/GB: Liver is heterogeneously hyperdense consistent with diffuse fatty infiltration on noncontra st images. Cholecystectomy clip is redemonstrated. No new worrisome intrahepatic mass or ductal dilat ation is seen. PANCREAS: No significant abnormality is seen. SPLEEN: No significant abnormality is seen. ADRENALS: No significant abnormality is seen. KIDNEYS: Noncontrast images show no renal calculi bilaterally. Postcontrast images show symmetric cor tical medullary uptake and excretion without hydronephrosis seen bilaterally. BOWEL: Oral contrast does not reach level of terminal ileum making evaluation of distal bowel slightl y suboptimal. Fecal filled terminal ileum is present. Findings consistent with delayed passage of ing ested material to colonic level. No suspicious small or large bowel dilatation. Mild wall thickening involving the left colon. Surgical clips from appendectomy at the base of cecum in the right upper pe lvis. LYMPH NODES: No greater than 1cm abdominal lymph nodes are appreciated. OSSEOUS STRUCTURES: Metallic hardware from bilateral hip arthroplasty redemonstrated on localizer. Pe rsistent moderate to severe disc space narrowing and vacuum disc phenomenon and left L5-S1 level.. Mi ld to moderate multilevel anterior spurring in the lower thoracic spine. OTHER: No significant additional abnormality is seen. IMPRESSION: No significant new or acute finding is seen to account for patient's clinical symptoms.
== END | disposition home or self-care (01) ==
LOC: RADCTMAIN 08:03
PROVIDERS: ATTEND Family Medicine
DX: K76.0 Fatty (change of) liver, not elsewhere classified (principal); R10.11 Right upper quadrant pain; R11.2 Nausea with vomiting, unspecified
CPT/HCPCS: 74170; Q9967

== ENCOUNTER → 2020-05-18 | Outpatient (CLI) | payer MEDICAID ==
--- NOTE | 2020-05-19 12:05 | MR ---
EXAMINATION TYPE: MR MRCP DATE OF EXAM: 05/18/2020 COMPARISON: CT 04/15/2020 and 06/30/2019 HISTORY: 54-year-old male Unspecified jaundice, RUQ pain, N & V x 2 yrs post gallbladder surgery TECHNIQUE: Multiplanar, multisequence images of the abdomen were acquired. Highly T2 weighted images of the pancreatic biliary system. 3-D reconstructions generated on a dedicated workstation. FINDINGS: Heart normal size. No pleural effusion. Liver measures 18.9 cm, mildly enlarged. The liver shows generalized loss of signal on T1 out of phas e sequence but with maintained signal in the caudate lobe and along the gallbladder fossa. Findings c ompatible with fatty infiltration and areas of fatty sparing. No suspicious T2-weighted signal lesion in the liver. The bile duct is mildly dilated measuring 8 mm but there is normal distal tapering. Minimal prominenc e to the intrahepatic biliary system. The patient is status post cholecystectomy. The reconstructed i mages show some anatomic variation with a separate branch to the right hepatic lobe joining the proxi mal bile duct at the vasiliy hepatis. A focal signal void along the course of this duct could either re present surgical artifact or a crossing vessel. No abnormal focal ductal dilatation to suggest a true filling defect. Nonenlarged and mildly enlarged vasiliy hepatic and portacaval lymph nodes measuring up to 1.7 cm are u nchanged back to 06/30/2019 suggesting a chronic reactive/post inflammatory etiology. Incidental diverticulum of the third portion of the duodenum projecting superiorly into the pancreati c head region measuring 3.7 cm wide. Adrenal glands, visualized portions of the kidneys, and pancreas appear within normal limits. Spleen borderline in size measuring 13.3 cm on coronal series. No upper abdominal ascites or gross bowel abnormality seen. IMPRESSION: 1. Hepatomegaly (18.9 cm) with hepatic steatosis. Areas of fatty sparing along the gallbladder fossa and caudate lobe. 2. Mild prominence to the biliary system with the bile duct measuring 8 mm but with normal distal tap ering and no suspicious filling defect. Findings likely normal for the patient given postcholecystect john status. 3. Nonenlarged and mildly enlarged portahepatic and portacaval lymph nodes measuring up to 1.7 cm are unchanged back to 06/30/2019 suggesting a chronic reactive/post inflammatory etiology.
== END | disposition home or self-care (01) ==
LOC: RADMRIMAIN 14:49
PROVIDERS: ATTEND Internal Medicine
DX: K76.0 Fatty (change of) liver, not elsewhere classified (principal); K82.8 Other specified diseases of gallbladder; R59.1 Generalized enlarged lymph nodes; Z90.49 Acquired absence of other specified parts of digestive tract
CPT/HCPCS: 74181

== ENCOUNTER → 2022-04-25 | Outpatient (CLI) | payer MEDICAID ==
[2022-04-25 14:32] LABS: Basophils # (A) 0.06 X 10*3/uL (0.00-0.10); Basophils % (A) 0.7 %; Eosinophils # (A) 0.24 X 10*3/uL (0.04-0.35); Eosinophils % (A) 2.7 %; HCT 48.9 % (39.6-50.0); HGB 15.6 g/dL (13.0-17.0); Immature Grans, Automated 0.3 %; Lymphocytes # (A) 2.32 X 10*3/uL (0.90-5.00); Lymphocytes % (A) 26.2 %; MCH 28.5 pg (27.0-32.0); MCHC 31.9 g/dL (32.0-37.0); MCV 89.4 fL (80.0-97.0); Mean Platelet Volume 10.3 fL (9.5-12.2); Monocytes # (A) 0.81 X 10*3/uL (0.20-1.00); Monocytes % (A) 9.2 %; NRBC Per 100 WBC 0 /100 WBCS (0.0-0.0); Neutrophils # (A) 5.38 X 10*3/uL (1.80-7.70); Neutrophils % (A) 60.9 %; Platelet Count 192 X 10*3/uL (140-440); RBC 5.47 X 10*6/uL (4.40-5.60); RDW 12.5 % (11.5-14.5); WBC 8.84 X 10*3/uL (4.50-10.00)
[2022-04-25 14:47] LABS: BUN/Creat Ratio 10.59 Ratio (12.00-20.00); Chol/HDL Ratio 2.84 Ratio; LDL Cholesterol,Calculated 70.7 mg/dL (0.0-131.0); VLDL Calculation 17.44 mg/dL (5.00-40.00)
[2022-04-25 14:48] LABS: ALT 91 U/L (10-49); AST 61 U/L (14-35); African American GFR (CKD) 94.6 (60.0-200.0); Albumin 4.5 g/dL (3.8-4.9); Albumin/Globulin Ratio 1.49 (1.60-3.17); Alkaline Phosphatase 78 U/L (41-126); Blood Urea Nitrogen 10.7 mg/dL (9.0-27.0); Calcium 9.5 mg/dL (8.7-10.3); Carbon Dioxide 26.3 mmol/L (20.0-27.5); Chloride 104 mmol/L (96-109); Glucose 109 mg/dL (70-110); Non-African American GFR(CKD) 81.6 (60.0-200.0); Potassium 4.5 mmol/L (3.5-5.5); Sodium 141 mmol/L (135-145); Total Protein 7.5 g/dL (6.2-8.2)
== END | disposition home or self-care (01) ==
LOC: LABWHC1 09:17
PROVIDERS: ATTEND Family Medicine
DX: Z12.5 Encounter for screening for malignant neoplasm of prostate (principal); K75.81 Nonalcoholic steatohepatitis (NASH); I10 Essential (primary) hypertension; Z80.42 Family history of malignant neoplasm of prostate
CPT/HCPCS: 36415; 80053; 80061; 84153; 85025

== ENCOUNTER → 2023-04-20 | Outpatient (CLI) | payer MEDICAID ==
--- NOTE | 2023-05-03 07:04 | EM ---
EVENT MONITOR SEVEN-DAY EVENT MONITOR: All available rhythm strips were reviewed. Most of these are sinus with some isolated PACs. When the patient felt lightheaded, irregular heartbeat sensation, or pounding the chest, he was in a sinus rhythm with a heart rate ranging from 74 to 106 beats per minute. There is no evidence of any significant tachy or kindra arrhythmias. FINAL IMPRESSION: Unremarkable seven-day event monitor with predominant sinus rhythm and no correlation of any arrhythmia with patient's perception of lightheadedness or irregular heartbeat or sharp pain in the chest. MMODL / IJN: [id number] /
== END | disposition home or self-care (01) ==
LOC: RADECHMAIN 07:43
PROVIDERS: ATTEND Family Medicine
DX: I10 Essential (primary) hypertension (principal); R00.2 Palpitations
CPT/HCPCS: 93270

== ENCOUNTER → 2024-10-10 | Outpatient (CLI) | payer MEDICAID ==
[2024-10-10 15:35] LABS: ALT 129 U/L (10-49); AST 75 U/L (14-35); Albumin 4.6 g/dL (3.8-4.9); Albumin/Globulin Ratio 1.44 Ratio (1.60-3.17); Alkaline Phosphatase 86 U/L (41-126); Blood Urea Nitrogen 15.3 mg/dL (9.0-27.0); Calcium 9.8 mg/dL (8.7-10.3); Carbon Dioxide 23.9 mmol/L (21.6-31.8); Chloride 104 mmol/L (96-109); Chol/HDL Ratio 3.46 Ratio; Globulin 3.2 g/dL (1.6-3.3); Glucose 120 mg/dL (70-110); LDL Cholesterol,Calculated 92.3 mg/dL (0.0-131.0); Potassium 4.7 mmol/L (3.5-5.5); Sodium 141 mmol/L (135-145); Total Bilirubin 0.6 mg/dL (0.3-1.2); Total Protein 7.8 g/dL (6.2-8.2)
[2024-10-10 16:45] LABS: Basophils # (A) 0.07 X 10*3/uL (0.00-0.10); Basophils % (A) 0.6 %; Eosinophils % (A) 0.9 %; HCT 52.5 % (39.6-50.0); HGB 17.1 g/dL (13.0-17.0); Lymphocytes # (A) 2.35 X 10*3/uL (0.90-5.00); Lymphocytes % (A) 21.1 %; MCH 28.4 pg (27.0-32.0); MCHC 32.6 g/dL (32.0-37.0); MCV 87.1 FL (80.0-97.0); Mean Platelet Volume 10.1 FL (9.5-12.2); Monocytes # (A) 1.04 X 10*3/uL (0.20-1.00); Monocytes % (A) 9.3 %; NRBC Per 100 WBC 0 X 10*3/uL (0.00-0.01); Neutrophils # (A) 7.56 X 10*3/uL (1.80-7.70); Neutrophils % (A) 67.7 %; Platelet Count 190 X 10*3/uL (140-440); RBC 6.03 X 10*6/uL (4.40-5.60); RDW 12.9 % (11.5-14.5); WBC 11.16 X 10*3/uL (4.50-10.00)
== END | disposition home or self-care (01) ==
LOC: LABWHC1 09:34
PROVIDERS: ATTEND Family Medicine
DX: Z00.00 Encounter for general adult medical examination without abnormal findings (principal); I10 Essential (primary) hypertension; K75.81 Nonalcoholic steatohepatitis (NASH); R00.2 Palpitations
CPT/HCPCS: 80061; 80053; 84443; 85025; 82306; 36415; G0103